=== PATIENT | male | born 1950 | race Caucasian/White ===

== ENCOUNTER 2020-01-20 07:39 | Day surgery (SDC) | payer MEDICARE, SELFPAY ==
--- NOTE | 2020-01-13 14:18 | EKG12_ITS ---
Test Reason : PRE OP Blood Pressure : / mmHG Vent. Rate : 063 BPM Atrial Rate : 063 BPM P-R Int : 174 ms QRS Dur : 102 ms QT Int : 392 ms P-R-T Axes : 056 -49 025 degrees QTc Int : 401 ms Normal sinus rhythm Left anterior fascicular block Abnormal ECG Confirmed by BRAEDEN ROJO, MATTHEW ([id number]), associate editor MG ALVARADO ([id number]) on 01/14/2020 11:02:39 AM Referred By: Thien Fernandes Confirmed By:MATTHEW DERAS MD
[2020-01-20] VITALS (9 sets, daily range): BP systolic 119–135; BP diastolic 63–86; PULSE 63–92; RESP 14–18; TEMP 36.6–37.3; O2SAT 95–100; BMI 30.4
--- NOTE | 2020-01-20 07:42 | PCM.HP.STD ---
Problem List (1) BPH with obstruction/lower urinary tract symptoms Status: Acute History of Present Illness Date of Admission: 01/20/20 Chief Complaint: BPH with obstruction The patient is a 69 year old male was found to have a very large prostate with obstructive prostate we plan to proceed with a transurethral resection of the prostate. Past Medical History Allergies mold Allergy (Verified 01/11/20 14:20) PT UNSURE OF REACTION aspirin [ASA] Adverse Reaction (Verified 01/11/20 14:20) Upset Stomach Home Medications: Ambulatory Orders Medication Instructions Recorded Ascorbic Acid [Vitamin C] 1,000 mg PO BID 01/11/20 Cholecalciferol (Vitamin D3) 5,000 unit PO BID 01/11/20 [Vitamin D3] Cranberry 500 mg PO BID 01/11/20 Fexofenadine HCl 180 mg PO BID 01/11/20 Gluc Patel/Chondro Patel A/Vit C/Mn 2 ea PO BID 01/11/20 [Glucosamine Chondroitin Tab] Omar Md 3 tab PO DAILY 01/11/20 Herba Vision 2 tab PO DAILY 01/11/20 Krill/Om3/Dha/Epa/Om6/Lip/Astx 2 ea PO DAILY 01/11/20 [Krill Oil 1,500 mg Softgel] L.acidoph,Paracasei, B.lactis 2 ea PO DAILY 01/11/20 [Probiotic] Levothyroxine Sodium [Euthyrox] 150 mcg PO DAILY 01/11/20 Magnesium Oxide [Magnesium] 400 mg PO DAILY 01/11/20 Multivit-Min/Folic/Vit K/Lycop 1 ea PO DAILY 01/11/20 [Men's Multivitamin Tablet] Nmn 1 tab PO DAILY 01/11/20 Potassium 99 mg PO DAILY 01/11/20 Urinary Support 2 tab PO DAILY 01/11/20 Surgical History: no surgical history Smoking Status: Never smoker Tobacco Use: Non-smoker Review of Systems Constitutional: Denies: Chills, Fever, Weight Change HEENT: Denies: Head Aches, Sinus Congestion, Sinus Drainage Cardiovascular: Denies: Chest Pain, Palpitations Respiratory: Denies: Cough, Shortness of breath at rest, Sputum production Gastrointestinal: Denies: Abdominal Pain, Nausea, Vomiting Genitourinary: Denies: Dysuria Musculoskeletal: Denies: Joint Pain, Joint Tenderness Skin: Denies: Rash, Wounds Neurological: Denies: Numbness, Tingling, Focal weakness Psychiatric: Denies: Anxiety, Depression, Homicidal Ideations, Suicidal Ideations Hematologic/ Lymphatic: Denies: Easy Bruising, Easy Bleeding VTE Information - Inpt Only VTE Present on Admission: No - Physical Exam General: Alert, Oriented x3, Cooperative HEENT: Atraumatic, PERRLA, EOMI, Normocephalic Neck: Supple, No JVD, Negative Carotid Bruits Lungs: Clear to auscultation, Normal air movement Cardiovascular: Regular rate, No murmurs Abdomen: Bowel Sounds Present, Soft, Non Tender Extremities: No edema, Capillary Refill Less than 3 Seconds Skin: No rashes, No breakdown Musculoskeletal: No Tenderness to Palpation of Joints or Extremities Neurological: Cranial nerves II-XII grossly intact Psych/Mental Status: Normal Affect, Appropriate Microbiology Past 72 Hours 01/19/20 11:00 Interface Orders SARS-CoV-2 Antigen (Rapid) - Final Current Medications Cefazolin Sodium 2 gm/ Sodium (Chloride) 110 mls @ 150 mls/hr IV PREOP ONE Stop: 01/20/20 07:43 Assessment/Plan All Active Problems BPH with obstruction/lower urinary tract symptoms (Acute) Plan to proceed with transurethral resection of the prostate
--- NOTE | 2020-01-20 07:48 | PCM.DC.URO ---
Discharge Diet: Light diet - advance as tolerated, Soft diet Discharge Activity: Return to Normal Activity Call your doctor if your incision/area has: Continuous Slow Oozing, Sudden Increased Bleeding Suture Line Care: Avoid Pulling/Pushing Instructions: Transurethral Resection of the Prostate (TURP): Home Recovery Allergies/Adverse Reactions: Allergies mold Allergy (Verified 01/11/20 14:20) PT UNSURE OF REACTION aspirin [ASA] Adverse Reaction (Verified 01/11/20 14:20) Upset Stomach Medications to take at Discharge Ascorbic Acid [Vitamin C] 1,000 mg PO BID 01/11/20 Cholecalciferol (Vitamin D3) [Vitamin D3] 5,000 unit PO BID 01/11/20 Cranberry 500 mg PO BID 01/11/20 Fexofenadine HCl 180 mg PO BID 01/11/20 Gluc Patel/Chondro Patel A/Vit C/Mn [Glucosamine Chondroitin Tab] 2 ea PO BID 01/11/20 Omar Morales 3 tab PO DAILY 01/11/20 Herba Vision 2 tab PO DAILY 01/11/20 Krill/Om3/Dha/Epa/Om6/Lip/Astx [Krill Oil 1,500 mg Softgel] 2 ea PO DAILY 01/11/20 L.acidoph,Paracasei, B.lactis [Probiotic] 2 ea PO DAILY 01/11/20 Levothyroxine Sodium [Euthyrox] 150 mcg PO DAILY 01/11/20 Magnesium Oxide [Magnesium] 400 mg PO DAILY 01/11/20 Multivit-Min/Folic/Vit K/Lycop [Men's Multivitamin Tablet] 1 ea PO DAILY 01/11/20 Nmn 1 tab PO DAILY 01/11/20 Potassium 99 mg PO DAILY 01/11/20 Urinary Support 2 tab PO DAILY 01/11/20 Ciprofloxacin [Cipro] 500 mg PO BID #14 tab 01/20/20 The following prescriptions were given: Ciprofloxacin [Cipro] 500 mg PO BID #14 tab Transmission Status: Pending to [id number] Orders to be completed after discharge: Thyroid Stim Hormone (TSH) Time Frame: 01/11/20, Facility: [facility], Location: Laboratory Primary Care Physician: Humble Avila NP, MOLDING LINE OPERATOR-C [Primary Care Provider] - Test Results: Test results from this visit will be discussed in further detail at your follow-up appointment, if applicable. Please Follow Up With: Thien Fernandes MD When: in 2 weeks, please call to make an appointment.
[2020-01-20] MEDS: Lactated Ringers 1,000 ML 100 ML IV ×2 (08:24→13:16)
--- NOTE | 2020-01-20 09:55 | PROS_PTH ---
PATIENT: BRITTANY AJ LOC: [facility] – [place] U#:[id number] AGE/SX: 69/M ROOM: RE01/20/[address]: Dr. Thien Fernandes MD : [id number] BED: DIS: 01/21/2020 SPEC #: [id number] RECD: 01/20/20 14:27 STATUS: GLORIA TODD #: [id number] BELLA: 01/20/20 09:[address]: Thien Fernandes DEPT: SURGICAL PATHOLOGY RECD BY: Pam Cool ENTERED: 01/21/20 08:46 SP TYPE: TURP OTHR DR: Humble Avila, IMPORT EXPORT AGENT-C Tissues: Prostate, NOS Procedures: Surgery Specimen Level IV HEADER OPERATION: Cysto, TUR prostate, Olympus PRE-OP DIAGNOSIS: BPH with obstruction TISSUE SUBMITTED: Prostate pieces MICROSCOPIC DIAGNOSIS Prostate pieces, TUR: Benign prostatic hyperplasia, glandular and stromal type. SJ:patricia 11/13/20 MICROSCOPIC DESCRIPTION Slides are reviewed. GROSS DESCRIPTION Received is one container labeled with the patient's name and designated prostate pieces. The specimen consists of multiple irregular fragments of pink-keith, rubbery, soft tissue that in aggregate weigh 0.4 gm and measure in aggregate 1.5 x 1.5 x 0.2 cm. The entire specimen is submitted in one cassette. / SJ:patricia 01/21/20 TC:5 CPT: 84272
[2020-01-20] MEDS: Cefazolin 2 GM in 0.9% Normal Saline 100 ML IV (11:36)
--- NOTE | 2020-01-20 12:28 | OP.PCM_ITS ---
Problem List (1) BPH with obstruction/lower urinary tract symptoms Status: Acute Report of Operation Date of Procedure: 01/20/20 Pre-Operative Diagnosis: BPH with obstruction Post-Operative Diagnosis: Same Surgery/Procedure Performed:: Transurethral resection of the prostate Description of Surgical Findings:: 69-year-old male taken back to the operating room after smooth induction of ge neral anesthesia he was placed in dorsolithotomy position. The penis and testicles are prepped and draped in usual sterile fashion. Went into the bladder with a 21 [place] rigid cystourethroscope the entire length the urethra is normal the prostate was enlarged obstructive the verumontanum was identified inside the bladder identified the right and left ureteral orifice I then switched over to the button Olympus resectoscope and used to resect the prostate wide open smooth out the prostate from the verumontanum all the way into the bladder neck at the end of the resection I did a flow test he had a wide open flow sphincter was intact all the obstructive tissue had been resected specimen was handed off to the nurse and he was taken back to the PACU in good condition surgery took about 45 minutes. Type of Anesthesia:: General Drains: 22fr - Admit VTE Documentation VTE Present on Admission: No VTE Mechan Device Prophylaxis: SCD's
[2020-01-20] MEDS: 0.9% Normal Saline 1,000 ML 125 ML IV ×2 (14:22→22:11)
[2020-01-20] MEDS: Docusate Sodium 100 MG Capsule PO ×2 (16:21→22:11)
[2020-01-20] MEDS: Pantoprazole Sodium 40 MG Tablet PO (16:21)
[2020-01-20] MEDS: Cefazolin 1 GM/50 ML BAG IV (19:20)
[2020-01-21 02:07] VITALS: BP 126/70; PULSE 72; RESP 16; TEMP 36.9; O2SAT 98
[2020-01-21] MEDS: Cefazolin 1 GM/50 ML BAG IV (02:47)
[2020-01-21] MEDS: 0.9% Normal Saline 1,000 ML 125 ML IV (06:28)
[2020-01-21 06:29] VITALS: BP 128/63; PULSE 75; RESP 17; TEMP 36.9; O2SAT 100
[2020-01-21 08:30] VITALS: BP 124/65; PULSE 69; RESP 18; TEMP 36.7; O2SAT 100
== END 2020-01-21 13:32 | disposition home or self-care (01) ==
LOC: SDC 07:39 → AC 07:40 → MS3 09:04
PROVIDERS: PCP Nurse Practitioner Primary Care; Referring Provider Urology; Visit Provider Urology
PROC: (CPT 52601; principal; 2020-01-20 09:45)
DX: N40.1 Benign prostatic hyperplasia with lower urinary tract symptoms (principal); N13.8 Other obstructive and reflux uropathy; Z11.59 Encounter for screening for other viral diseases; E06.9 Thyroiditis, unspecified; Z79.899 Other long term (current) drug therapy
CPT/HCPCS: 00914; 52601; 87426; 88305; 93005; C9803; J7030; J7120; J2405